=== PATIENT | male | born 1980 | race African-American/Black ===

== ENCOUNTER 2016-11-17 08:33 | Emergency (ER) | payer OTHER, SELFPAY | END 2016-11-17 09:00 | disposition home or self-care (01) | LOC: NAV ERS 08:33 | DX: K02.9 Dental caries, unspecified (principal); F17.210 Nicotine dependence, cigarettes, uncomplicated | CPT/HCPCS: 99282 ==

== ENCOUNTER 2019-01-23 06:43 | Emergency (ER) | payer OTHER, SELFPAY ==
[2019-01-23] MEDS ORDERED: Ondansetron ODT 4 MG TAB ONE (07:35)
[2019-01-23] MEDS ORDERED: Azithromycin 250 MG TAB ONE (07:35)
[2019-01-23] MEDS ORDERED: cefTRIAXone\\ROCEPHIN 500 MG VIAL ONE (07:35)
[2019-01-23] MEDS ORDERED: Lidocaine 1% (PF) 30 ML VIAL ONE (07:37)
[2019-01-23 08:09] LABS: Bilirubin Negative (Negative); Blood, Urine Negative (Negative); Clarity Clear (Clear); Glucose, Urine (Dipstick) Negative (Negative); Leukocyte Negative (Negative); Nitrite Negative (Negative); Protein, Urine (Dipstick) Negative (Neg-Trace); Urobilinogen 0.2 mg/dL (0.2-1.0)
[2019-01-24 23:18] LABS: Chlam.trachomatis by PCR,Urine Not Detected (NotDetected)
== END 2019-01-23 08:07 | disposition home or self-care (01) ==
LOC: NAV ERS 06:43
DX: R36.9 Urethral discharge, unspecified (principal); R30.0 Dysuria; F17.200 Nicotine dependence, unspecified, uncomplicated
CPT/HCPCS: 81003; 87491; 87591; 96372; J0696; J2001; Q0162

== ENCOUNTER 2019-07-31 07:31 | Emergency (ER) | payer SELFPAY ==
[2019-07-31 08:03] LABS: #Basophils 0.1 thou/uL (0.0-0.2); #Eosinphils 0.1 thou/uL (0.0-0.7); #Lymphocytes 2.3 thou/uL (1.20-3.40); #Monocytes 0.3 thou/uL (0.11-0.59); %Basophils 0.8 % (0.0-1.0); %Eosinophils 1.8 % (0.0-10.0); %Lymphocytes 33.9 % (21.0-51.0); %Monocytes 4.8 % (0.0-10.0); %Neutrophils 58.7 % (42.0-75.0); Hemoglobin 14.2 g/dL (14.0-18.0); Mean Corpuscular HGB CONC 31.7 g/dL (32.0-36.0); Mean Corpuscular Hemoglobin 28.6 pg (27.0-31.0); Mean Corpuscular Volume 90.1 fL (78.0-98.0); Mean Platelet Volume 9.7 fL (7.4-10.4); Platelet Count 217 thou/uL (130-400); RBC Distribution Width 11.9 % (11.5-14.5); Red Blood Cell (RBC) Count 4.97 mill/uL (4.70-6.10); White Blood Cell (WBC) Count 6.8 thou/uL (4.8-10.8)
== END 2019-07-31 08:50 | disposition home or self-care (01) ==
LOC: NAV ERS 07:31
DX: R04.2 Hemoptysis (principal); F17.200 Nicotine dependence, unspecified, uncomplicated
CPT/HCPCS: 36415; 85025; 99283

== ENCOUNTER 2019-09-16 07:47 | Emergency (ER) | payer SELFPAY ==
[2019-09-16] MEDS ORDERED: Ibuprofen 200 MG TAB ONE (08:14)
== END 2019-09-16 08:15 | disposition home or self-care (01) ==
LOC: NAV ERS 07:47
DX: J11.1 Influenza due to unidentified influenza virus with other respiratory manifestations (principal); F17.200 Nicotine dependence, unspecified, uncomplicated
CPT/HCPCS: 99283

== ENCOUNTER 2021-03-22 08:44 | Emergency (ER) | payer SELFPAY ==
[2021-03-22] MEDS ORDERED: Boostrix 0.5 ML (Tdap) VIAL ONE (09:20)
[2021-03-22] MEDS ORDERED: Silver Sulfadiazine 50 GM TUBE ONE (09:20)
== END 2021-03-22 09:35 | disposition home or self-care (01) ==
LOC: NAV ERS 08:44
DX: T22.212A Burn of second degree of left forearm, initial encounter (principal); T31.0 Burns involving less than 10% of body surface; F17.200 Nicotine dependence, unspecified, uncomplicated; X11.8XXA Contact with other hot tap-water, initial encounter
CPT/HCPCS: 16020; 90471; 90715

== ENCOUNTER 2021-10-19 16:10 | Emergency (ER) | payer SELFPAY | END 2021-10-19 17:28 | disposition home or self-care (01) | LOC: NAV ERS 16:10 | DX: S02.31XA Fracture of orbital floor, right side, initial encounter for closed fracture (principal); F17.200 Nicotine dependence, unspecified, uncomplicated; W50.0XXA Accidental hit or strike by another person, initial encounter | CPT/HCPCS: 70486 ==